=== PATIENT | male | born 2000 ===

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

== ENCOUNTER 2018-05-24 15:02 | Inpatient (IN) | payer SELFPAY ==
[2018-05-24] MEDS ORDERED: Sodium Chloride 0.9% 1,000 ML IV ONE (16:13)
--- NOTE | 2018-05-24 16:13 | C.PDOC ---
History Of Present Illness 18 year old male presents to the ED for evaluation of new onset LUQ pain associated with nausea since 3pm today. The patient notes the abdominal pain is constant and localized. Denies PSHx. Denies fever, chills, vomiting, diarrhea, bloating, and any other associated symptoms. NEW ONSET LUQ SINCE 299. CONSTANT LOCALIZED +NAUSEA. PSH NEG. NO FEVER, DIARRHEA, BLOATING EXAM MOD DIST NONTOXIC ANICTERIC ABD +LUQ TEND SOFT NO R/G REMAINDER NEG <Ciara Kate - Last Filed: 05/24/18 18:41> History Per: Patient History/Exam Limitations: no limitations Onset/Duration Of Symptoms: Hrs Current Symptoms Are (Timing): Still Present Location Of Pain/Discomfort: LLQ Associated Symptoms: Nausea. denies: Fever, Chills, Vomiting, Diarrhea Recent travel outside of the [place]: No <Ciara Kate - Last Filed: 05/24/18 18:41> <Shahid Johnson - Last Filed: 05/24/18 19:16> Time Seen by Provider: 05/24/18 15:33 Chief Complaint (Nursing): Abdominal Pain Past Medical History Reviewed: Historical Data, Nursing Documentation, Vital Signs Vital Signs: Last Vital Signs Temp 97.3 F L 05/24/18 15:08 Pulse 108 H 05/24/18 15:08 Resp 18 05/24/18 15:08 BP 112/73 05/24/18 15:08 Pulse Ox 99 05/24/18 15:08 Family History: States: Unknown Family Hx - Social History Hx Tobacco Use: No Hx Alcohol Use: No Hx Substance Use: No <Ciara Kate - Last Filed: 05/24/18 18:41> Vital Signs: Last Vital Signs Temp 97.3 F L 05/24/18 15:08 Pulse 108 H 05/24/18 15:08 Resp 18 05/24/18 15:08 BP 112/73 05/24/18 15:08 Pulse Ox 99 05/24/18 18:44 <Shahid Johnson - Last Filed: 05/24/18 19:16> Review Of Systems Except As Marked, All Systems Reviewed And Found Negative. Constitutional: Negative for: Fever, Chills Gastrointestinal: Positive for: Nausea, Abdominal Pain (LLQ). Negative for: Vomiting, Diarrhea, Other (bloating. ) <Ciara Kate Last Filed: 05/24/18 18:41> Physical Exam - Physical Exam Appears: Non-toxic, Other (moderate distress. ) Skin: Warm, Dry Head: Atraumatic, Normacephalic Eye(s): bilateral: Normal Inspection, Other (ANICTERIC.) Oral Mucosa: Moist Neck: Normal ROM Chest: Symmetrical, No Deformity Cardiovascular: Rhythm Regular, No Murmur Respiratory: Normal Breath Sounds, No Rales, No Rhonchi, No Wheezing, Other (NARD) Gastrointestinal/Abdominal: Soft, Tenderness (LUQ ), No Distention, No Guarding, No Rebound Extremity: Bilateral: Atraumatic, Normal Color And Temperature Neurological/Psych: Oriented x3, Normal Speech, Normal Cognition <Ciara Kate Filed: 05/24/18 18:41> ED Course And Treatment - Laboratory Results Result Diagrams: 05/24/18 16:46 05/24/18 16:46 O2 Sat by Pulse Oximetry: 99 (RA) Pulse Ox Interpretation: Normal - CT Scan/US CT ABD & Pelvis Other Rad Studies (CT/US): Read By Radiologist CT/US Interpretation: FINDINGS: LUNG BASES: The lung bases appear clear. No pleural effusions are seen. LIVER: There is fatty infiltration of the liver.. GALLBLADDER AND BILE DUCTS: The gallbladder appears within normal limits. No radioopaque gallstones are seen. No biliary ductal dilatation is evident. PANCREAS: Unremarkable. SPLEEN: Unremarkable. ADRENAL GLANDS: Unremarkable. KIDNEYS, URETERS, AND BLADDER: The kidneys appear within normal limits. There is no hydronephrosis or hydroureter. No urinary calculi are seen. STOMACH AND BOWEL: Unremarkable appearance of the stomach and bowel. No evidence of bowel obstruction. No evidence suggesting enteritis or colitis. APPENDIX: There is an approximate 5 mm appendicolith and distention of the appendix and thickening of the wall the appendix with mild periappendiceal fat stranding. PERITONEUM: No free fluid. No free air. LYMPH NODES: No lymphadenopathy is evident. REPRODUCTIVE: Unremarkable as visualized. VASCULATURE: No evidence of abdominal aortic aneurysm. BONES: No aggressive appearing osseous lesion. No acute osseous pathology evident. IMPRESSION: Fatty infiltration of the liver. Findings compatible with an appendicolith and appendicitis. Surgical cons ultation recommended. <Ciara Kate Filed: 05/24/18 18:41> - Laboratory Results Result Diagrams: 05/24/18 16:46 05/24/18 16:46 Lab Results: Total Bilirubin 0.6 mg/dL (0.2-1.3) 05/24/18 16:46 AST 39 U/L (17-59) 05/24/18 16:46 ALT 69 U/L (21-72) 05/24/18 16:46 Alkaline Phosphatase 86 U/L (38-126) 05/24/18 16:46 Total Protein 7.7 g/dL (6.3-8.3) 05/24/18 16:46 Albumin 4.8 g/dL (3.5-5.0) 05/24/18 16:46 Globulin 2.9 gm/dL (2.2-3.9) 05/24/18 16:46 Albumin/Globulin Ratio 1.7 (1.0-2.1) 05/24/18 16:46 Lipase 63 U/L (23-300) 05/24/18 16:46 Urine Color Yellow (YELLOW) 05/24/18 16:46 Urine Clarity Clear (Clear) 05/24/18 16:46 Urine pH 5.0 (5.0-8.0) 05/24/18 16:46 Ur Specific [place] 1.029 (1.003-1.030) 05/24/18 16:46 Urine Protein 1+ mg/dL (NEGATIVE) H 05/24/18 16:46 Urine Glucose (UA) Normal mg/dL (Normal) 05/24/18 16:46 Urine Ketones Negative mg/dL (NEGATIVE) 05/24/18 16:46 Urine Blood Negative (NEGATIVE) 05/24/18 16:46 Urine Nitrate Negative (NEGATIVE) 05/24/18 16:46 Urine Bilirubin Negative (NEGATIVE) 05/24/18 16:46 Urine Urobilinogen Normal mg/dL (0.2-1.0) 05/24/18 16:46 Ur Leukocyte Esterase Neg Nga/uL (Negative) 05/24/18 16:46 Urine WBC (Auto) 1 /hpf (0-5) 05/24/18 16:46 Urine RBC (Auto) 1 /hpf (0-3) 05/24/18 16:46 <Shahid Johnson E - Last Filed: 05/24/18 19:16> Progress - Re-Evaluation Re-evaluation Note: 05/24/18 18:43 D/W SURG RES WILL EVAL IN ER - Data Reviewed Data Reviewed: Lab, Diagnostic imaging, Old records <Ciara Kate - Last Filed: 05/24/18 18:41> - Time Time: 19:15 <Shahid Johnson - Last Filed: 05/24/18 19:16> Medical Decision Making Medical Decision Making: Initial plan: -CT ABD/Pelvis IV Con only -Morphine -Zofran -Blood sent. -Urinalysis <Ciara Kate - Last Filed: 05/24/18 18:41> Medical Decision Making: signed over @ 1900 to f/u with SUrg LLQ pain with CT + AP results reviewed pt seen and examined, + tender LLQ (not RLQ) d/w Surg Raffi ok to admit to Dr. Shayne patino for Zosyn given <Shahid Johnson - Last Filed: 05/24/18 19:16> Disposition Counseled Patient/Family Regarding: Studies Performed, Diagnosis - Disposition Disposition Time: 19:00 - POA Present On Arrival: None <Ciara Kate - Last Filed: 05/24/18 18:41> Doctor Will See Patient In The: Hospital Counseled Patient/Family Regarding: Studies Performed, Diagnosis <Shahid Johnson - Last Filed: 05/24/18 19:16> - Disposition Condition: GOOD Forms: [employer] ([place]i) - Clinical Impression Clinical Impression: Appendicitis, Abdominal pain - Scribe Statement The provider has reviewed the documentation as recorded by the Scribe (Aide Arias) Provider Attestation: All medical record entries made by the Scribe were at my direction and person ally dictated by me. I have reviewed the chart and agree that the record accurately reflects my personal performance of the history, physical exam, medical decision making, and the department course for this patient. I have also personally directed, reviewed, and agree with the discharge instructions and disposition. <Ciara Kate - Last Filed: 05/24/18 18:41> Physician Patient Turnover Patient Signed Over To: Shahid Johnson Handoff Comments: FU SURG DISPO <Ciara Kate - Last Filed: 05/24/18 18:41>
[2018-05-24] MEDS ORDERED: Morphine 4 MG/ML VIAL ONE (16:44)
[2018-05-24 16:50] LABS: BASO % 0.4 % (0.0-2.0); EOS # 0.1 K/uL (0.0-0.7); EOS % 0.6 % (0.0-4.0); HEMOGLOBIN 15.3 g/dL (12.0-18.0); LYMPH # 1.7 K/uL (1.0-4.3); LYMPH % 15.2 % (20.0-40.0); MEAN CELL VOLUME 90.3 fL (80.0-94.0); MEAN CORPUSCULAR HEMOGLOBIN 29.8 pg (27.0-31.0); MEAN PLATELET VOLUME 8.4 fL (7.2-11.7); MONO # 0.7 K/uL (0.0-0.8); NEUT # 8.6 K/uL (1.8-7.0); NEUT % 77.8 % (50.0-75.0); RBC 5.13 Mil/uL (4.40-5.90); RED CELL DISTRIBUTION WIDTH 12.5 % (11.5-14.5)
[2018-05-24 17:00] LABS: URINE BILIRUBIN NEGATIVE (NEGATIVE); URINE BLOOD NEGATIVE (NEGATIVE); URINE CLARITY Clear (Clear); URINE COLOR Yellow (YELLOW); URINE GLUCOSE (UA) NORMAL (Normal); URINE LEUKOCYTE ESTERASE NEG Leu/uL (Negative); URINE PROTEIN 1+ mg/dL (NEGATIVE); URINE UROBILINOGEN NORMAL mg/dL (0.2-1.0)
[2018-05-24 17:03] LABS: ALB/GLOB RATIO 1.7 (1.0-2.1); ALBUMIN 4.8 g/dL (3.5-5.0); ALT/SGPT 69 U/L (21-72); AST/SGOT 39 U/L (17-59); BLOOD UREA NITROGEN 12 mg/dL (9-20); CALCIUM 9.4 mg/dl (8.6-10.4); GFR NON-AFRICAN AMERICAN > 60; LIPASE 63 U/L (23-300)
[2018-05-24] MEDS ORDERED: Iodixanol 320 MG/ML 100 ML BOTTLE IV ONE (17:11)
[2018-05-24] MEDS ORDERED: Piperacillin/Tazobact 3.375 gm 100 ML IV STA (18:41)
[2018-05-24] MEDS ORDERED: Piperacillin/Tazobact 3.375 gm 100 ML IVPB ONE (19:32)
[2018-05-24] MEDS: Lactated Ringer's 1,000 ML IV SCH (21:00)
--- NOTE | 2018-05-24 21:09 | CP.PCM.HP ---
History of Present Illness - History of Present Illness History of Present Illness: Surgery: Dr. Bella Pt is a 18M with no significant PMHx who presents to with complaints of abdominal pain that started earlier today. Pt states pain woke him up from sleep at 3AM and was located on the left side of his abdomen. He tried taking some pepto bismol for the pain but states it did not help. Pt denies ever having a similar episode in the past. States pain remained on the left side and did not travel or radiate anywhere else. Admits to associated nausea but denies vomiting. Denies diarrhea/constipation. In the ER pt had a CT abdomen/pelvis which shows small appendicolith in the tip of the appendix with some edema suspicious for appendicitis. Surgery called to evaluate. Currently, pt is resting comfortably, states pain is better after morphine but left side of his abdomen is still cleaner tube. Denies fevers/chills, chest pain or SOB. PMHx: denies PSHx: denies SocialHx: denies smoking/EtOH/drugs FamHx: non-contributory NKDA Present on Admission - Present on Admission Any Indicators Present on Admission: No Review of Systems - Review of Systems All systems: reviewed and no additional remarkable complaints except (as per HPI) Past Patient History - Past Social History Smoking Status: Never Smoked - CARDIAC Hx Cardiac Disorders: Yes Other/Comment: "possible heart mumur" - PSYCHIATRIC Hx Substance Use: No - SURGICAL HISTORY Hx Surgeries: No Meds Allergies/Adverse Reactions: Allergies Allergy/AdvReac Type Severity Reaction Status Date / Time No Known Allergies Allergy Verified 05/24/18 15:07 Physical Exam - Constitutional Appears: Well, No Acute Distress - Head Exam Head Exam: ATRAUMATIC, NORMOCEPHALIC - Eye Exam Eye Exam: Normal appearance - ENT Exam ENT Exam: Mucous Membranes Moist - Respiratory Exam Respiratory Exam: NORMAL BREATHING PATTERN - Cardiovascular Exam Cardiovascular Exam: RRR - GI/Abdominal Exam GI & Abdominal Exam: Soft, Tenderness (LLQ). absent: Distended, Guarding, Rebound - Extremities Exam Extremities exam: Negative for: tenderness - Neurological Exam Neurological exam: Alert, Oriented x3 - Skin Skin Exam: Dry, Warm Results - Vital Signs Recent Vital Signs: Last Vital Signs Temp 98.6 F 05/24/18 20:06 Pulse 85 05/24/18 20:06 Resp 18 05/24/18 20:06 BP 116/70 05/24/18 20:06 Pulse Ox 100 05/24/18 20:06 - Labs Result Diagrams: 05/24/18 16:46 05/24/18 16:46 Labs: Laboratory Results - last 24 hr 05/24/18 05/24/18 05/24/18 16:46 16:46 16:46 WBC 11.0 H RBC 5.13 Hgb 15.3 Hct 46.3 MCV 90.3 MCH 29.8 MCHC 33.0 RDW 12.5 Plt Count 211 MPV 8.4 Neut % (Auto) 77.8 H Lymph % (Auto) 15.2 L [place] % (Auto) 6.0 Eos % (Auto) 0.6 Baso % (Auto) 0.4 Neut # (Auto) 8.6 H Lymph # (Auto) 1.7 [place] # (Auto) 0.7 Eos # (Auto) 0.1 Baso # (Auto) 0.0 Sodium 141 Potassium 4.0 Chloride 104 Carbon Dioxide 28 Anion Gap 13 BUN 12 Creatinine 0.9 Est GFR ( Amer) > 60 Est GFR (Non-Af Amer) > 60 Random Glucose 112 H Calcium 9.4 Total Bilirubin 0.6 AST 39 ALT 69 Alkaline Phosphatase 86 Total Protein 7.7 Albumin 4.8 Globulin 2.9 Albumin/Globulin Ratio 1.7 Lipase 63 Urine Color Yellow Urine Clarity Clear Urine pH 5.0 Ur Specific [place] 1.029 Urine Protein 1+ H Urine Glucose (UA) Normal Urine Ketones Negative Urine Blood Negative Urine Nitrate Negative Urine Bilirubin Negative Urine Urobilinogen Normal Ur Leukocyte Esterase Neg Urine WBC (Auto) 1 Urine RBC (Auto) 1 - Imaging and Cardiology CT scan - abdomen Status: Image reviewed by me, Report reviewed by me Assessment & Plan - Assessment and Plan (Free Text) Assessment: 18M with abdominal pain, r/o appendicitis Plan: - keep npo with IVF - will hold off on ABX so as not to mask appendicitis - will re-eval in AM for possible OR - d/w Dr. Shayne Polo
[2018-05-25] MEDS: Piperacill/Tazo 3.375gm in Dex 3.375 GM/50 ML BAG IVPB SCH ×3 (01:06→19:31)
[2018-05-25] MEDS: Lactated Ringer's 1,000 ML IV SCH ×3 (07:08→17:08)
--- NOTE | 2018-05-25 08:14 | CT ---
Date of service: 05/24/2018 PROCEDURE: CT Abdomen and Pelvis with contrast HISTORY: abd pain LUQ COMPARISON: None. TECHNIQUE: Contrast dose: 100 mL of Visipaque 320 intravenously. Axial and reformatted coronal and sagittal CT images of the abdomen and pelvis were obtained after IV contrast administration. Radiation dose: Total exam DLP = 993.02 mGy-cm. This CT exam was performed using one or more of the following dose reduction techniques: Automated exposure control, adjustment of the mA and/or kV according to patient size, and/or use of iterative reconstruction technique. FINDINGS: LOWER THORAX: Unremarkable. LIVER: The liver is dtzbhk-lz-grhprayyjy enlarged demonstrate moderate diffuse low attenuation suggestive of fatty liver infiltration. No evidence of mass lesion. The portal vein is patent. GALLBLADDER AND BILE DUCTS: Unremarkable. PANCREAS: Unremarkable. No gross lesion or ductal dilatation. SPLEEN: Unremarkable. ADRENALS: Unremarkable. No mass. KIDNEYS AND URETERS: Unremarkable. No hydronephrosis. No solid mass. VASCULATURE: Unremarkable. No aortic aneurysm. No aortic atherosclerotic calcification or mural plaque present. BOWEL: Unremarkable. No obstruction. No gross mural thickening. APPENDIX: There is appendicoliths seen in the proximal portion of the appendix. Mild inflammatory changes surrounding the appendix suggestive of acute appendicitis. No evidence of abscess formation. PERITONEUM: Unremarkable. No free fluid. No free air. LYMPH NODES: Unremarkable. No enlarged lymph nodes. BLADDER: Unremarkable. REPRODUCTIVE: Unremarkable. BONES: There is 1.2 centimeters sclerotic bony lesion at the left femoral neck noted may represent benign bone island. OTHER FINDINGS: None. IMPRESSION: Appendicoliths and mild inflammatory changes surrounding the appendix suggestive of appendicitis. Hepatomegaly and diffuse low-attenuation of the liver suggestive of tejc-to-wyrftobc hepatic steatosis. Preliminary report was submitted by [facility] Radiology contains concordant findings.
[2018-05-25 08:20] LABS: HEMOGLOBIN 14.7 g/dL (12.0-18.0); MEAN CELL VOLUME 90.5 fL (80.0-94.0); MEAN CORPUSCULAR HEMOGLOBIN 30.4 pg (27.0-31.0); MEAN CORPUSCULAR HGB CONC 33.6 g/dL (33.0-37.0); MEAN PLATELET VOLUME 8.4 fL (7.2-11.7); RBC 4.83 Mil/uL (4.40-5.90); RED CELL DISTRIBUTION WIDTH 12.6 % (11.5-14.5); WHITE BLOOD COUNT 8.9 K/uL (4.8-10.8)
[2018-05-25 08:53] LABS: BLOOD UREA NITROGEN 8 mg/dL (9-20); GFR NON-AFRICAN AMERICAN > 60
[2018-05-25] MEDS ORDERED: Bupivacaine-Epi 0.5%-1:200,000 PF Inj ONE (11:27)
[2018-05-25] MEDS ORDERED: Midazolam 2 MG/2 ML VIAL ONE (11:28)
[2018-05-25] MEDS ORDERED: Propofol 10 mg/ml Inj (20 ML) ONE (11:28)
[2018-05-25] MEDS ORDERED: Rocuronium 10 mg/ml (5 ml) ONE (12:07)
[2018-05-25] MEDS ORDERED: Succinylcholine Chloride 20 mg/ml Syr (5 ml) IV ONE (12:07)
[2018-05-25] MEDS ORDERED: Neostigmine 1:1000 (1 mg/ml) Inj ONE (12:27)
[2018-05-25] MEDS ORDERED: Phenylephrine 10 mg/ml Inj ONE (12:40)
[2018-05-25] MEDS ORDERED: ePHEDrine 50 mg/ml Inj ONE (12:40)
--- NOTE | 2018-05-25 12:51 | CP.PCM.DIS ---
Provider - Provider Date of Admission: 05/24/18 19:14 Attending physician: Anselmo Bella MD Time Spent in preparation of Discharge (in minutes): 40 Hospital Course - Lab Results Lab Results: Most Recent Lab Values WBC 8.9 K/uL (4.8-10.8) 05/25/18 08:05 RBC 4.83 Mil/uL (4.40-5.90) 05/25/18 08:05 Hgb 14.7 g/dL (12.0-18.0) 05/25/18 08:05 Hct 43.7 % (35.0-51.0) 05/25/18 08:05 MCV 90.5 fL (80.0-94.0) 05/25/18 08:05 MCH 30.4 pg (27.0-31.0) 05/25/18 08:05 MCHC 33.6 g/dL (33.0-37.0) 05/25/18 08:05 RDW 12.6 % (11.5-14.5) 05/25/18 08:05 Plt Count 190 K/uL (130-400) 05/25/18 08:05 MPV 8.4 fL (7.2-11.7) 05/25/18 08:05 Neut % (Auto) 77.8 % (50.0-75.0) H 05/24/18 16:46 Lymph % (Auto) 15.2 % (20.0-40.0) L 05/24/18 16:46 [place] % (Auto) 6.0 % (0.0-10.0) 05/24/18 16:46 Eos % (Auto) 0.6 % (0.0-4.0) 05/24/18 16:46 Baso % (Auto) 0.4 % (0.0-2.0) 05/24/18 16:46 Neut # (Auto) 8.6 K/uL (1.8-7.0) H 05/24/18 16:46 Lymph # (Auto) 1.7 K/uL (1.0-4.3) 05/24/18 16:46 [place] # (Auto) 0.7 K/uL (0.0-0.8) 05/24/18 16:46 Eos # (Auto) 0.1 K/uL (0.0-0.7) 05/24/18 16:46 Baso # (Auto) 0.0 K/uL (0.0-0.2) 05/24/18 16:46 Sodium 138 mmol/L (132-148) 05/25/18 08:05 Potassium 3.7 mmol/L (3.6-5.2) 05/25/18 08:05 Chloride 106 mmol/L (98-107) 05/25/18 08:05 Carbon Dioxide 27 mmol/L (22-30) 05/25/18 08:05 Anion Gap 9 (10-20) L 05/25/18 08:05 BUN 8 mg/dL (9-20) L 05/25/18 08:05 Creatinine 1.0 mg/dL (0.8-1.5) 05/25/18 08:05 Est GFR ( Amer) > 60 05/25/18 08:05 Est GFR (Non-Af Amer) > 60 05/25/18 08:05 Random Glucose 91 mg/dL (75-110) 05/25/18 08:05 Calcium 9.0 mg/dl (8.6-10.4) 05/25/18 08:05 Total Bilirubin 0.6 mg/dL (0.2-1.3) 05/24/18 16:46 AST 39 U/L (17-59) 05/24/18 16:46 ALT 69 U/L (21-72) 05/24/18 16:46 Alkaline Phosphatase 86 U/L (38-126) 05/24/18 16:46 Total Protein 7.7 g/dL (6.3-8.3) 05/24/18 16:46 Albumin 4.8 g/dL (3.5-5.0) 05/24/18 16:46 Globulin 2.9 gm/dL (2.2-3.9) 05/24/18 16:46 Albumin/Globulin Ratio 1.7 (1.0-2.1) 05/24/18 16:46 Lipase 63 U/L (23-300) 05/24/18 16:46 Urine Color Yellow (YELLOW) 05/24/18 16:46 Urine Clarity Clear (Clear) 05/24/18 16:46 Urine pH 5.0 (5.0-8.0) 05/24/18 16:46 Ur Specific [place] 1.029 (1.003-1.030) 05/24/18 16:46 Urine Protein 1+ mg/dL (NEGATIVE) H 05/24/18 16:46 Urine Glucose (UA) Normal mg/dL (Normal) 05/24/18 16:46 Urine Ketones Negative mg/dL (NEGATIVE) 05/24/18 16:46 Urine Blood Negative (NEGATIVE) 05/24/18 16:46 Urine Nitrate Negative (NEGATIVE) 05/24/18 16:46 Urine Bilirubin Negative (NEGATIVE) 05/24/18 16:46 Urine Urobilinogen Normal mg/dL (0.2-1.0) 05/24/18 16:46 Ur Leukocyte Esterase Neg Nga/uL (Negative) 05/24/18 16:46 Urine WBC (Auto) 1 /hpf (0-5) 05/24/18 16:46 Urine RBC (Auto) 1 /hpf (0-3) 05/24/18 16:46 - Hospital Course Hospital Course: 18M presented to hospital for acute appendicitis. Patient went to OR for laparoscopic appendectomy. Tolerated the procedure well. Discharge Exam - Head Exam Head Exam: ATRAUMATIC, NORMOCEPHALIC - Respiratory Exam Respiratory Exam: NORMAL BREATHING PATTERN - Cardiovascular Exam Cardiovascular Exam: REGULAR RHYTHM, +S1, +S2 - GI/Abdominal Exam GI & Abdominal Exam: Soft. absent: Distended, Firm, Guarding, Rebound, Rigid, Tenderness Additional comments: Incisions CDI - Neurological Exam Neurological exam: Alert, Oriented x3 - Skin Skin Exam: Dry, Intact, Normal Color, Warm Discharge Plan - Discharge Medications Prescriptions: oxyCODONE/Acetaminophen [Percocet 5/325 mg Tab] 1 ea PO Q6 PRN #10 tab PRN Reason: Pain, Severe (8-10) - Follow Up Plan Condition: GOOD Disposition: HOME/ ROUTINE Patient education suggested?: Yes Instructions: Appendectomy, Laparoscopic Surgery (DC) Additional Instructions: 1) Please follow up with Dr. Bella in the office in 1-2 weeks 2) May shower but do not bath 3) Glue on incisions with fall off on their own, do not peel 4) Take prescriptions as directed if needed 5) Do not drive while taking opioid medications 6) No heavy lifting for 3 weeks Referrals: Anselmo Bella MD [Staff Provider] -
--- NOTE | 2018-05-25 12:58 | PCM.SURG1 ---
Surgeon's Initial Post Op Note - Surgeon's Notes Surgeon: Shayne TENA Chief Electrician: Maggie, PGY3 Pre-Operative Diagnosis: Acute appendicitis Operative Findings: Inflammed retrocecal appendix Post-Operative Diagnosis: Acute appendicitis Operation Performed: Laparoscopic appendectomy Specimen/Specimens Removed: appendix Estimated Blood Loss: EBL {In ML}: 20 Date of Surgery/Procedure: 05/25/18 Time of Surgery/Procedure: 12:58
[2018-05-25 15:54] VITALS: BP 117/72; PULSE 107; RESP 20; TEMP 98.5; O2SAT 96
[2018-05-25] MEDS ORDERED: Influenza Vaccine 60 MCG/0.5 ML SYR (3 yr & up) IM ONE (16:15)
[2018-05-25] MEDS ORDERED: Pneumococcal 23-Valent Vaccine IM ONE (16:15)
[2018-05-25] MEDS ORDERED: Influenza Vaccine 60 mcg/0.5 mL SYR (4YR UP) IM ONE (16:30)
[2018-05-26] MEDS ORDERED: Pneumococcal 23-Valent Vaccine IM ONE (10:00)
[2018-05-27] MEDS ORDERED: Influenza Vaccine 60 mcg/0.5 mL SYR (4YR UP) IM ONE (10:00)
--- NOTE | 2018-05-29 06:47 | OP ---
PROCEDURE DATE: 05/25/2018 PREOPERATIVE DIAGNOSIS: Acute appendicitis. POSTOPERATIVE DIAGNOSIS: Incidental appendix, mild appendicitis. PROCEDURE PERFORMED: Laparoscopic appendectomy. FINDINGS: The appendix was markedly long. It is very thin, and there is only slight swelling at the tip area. The appendix was also ____ in nature. DESCRIPTION OF PROCEDURE: Under general anesthesia, the patient was prepared and draped in the usual sterile fashion. Three trocars were inserted, one in the umbilicus, one in the suprapubic area, one in the left lower quadrant. The patient was placed in a Trendelenburg position, turned over towards the left side. With the CO2 insufflated to about 15 mmHg, the appendix was also identified. The appendix was transected at the base of the Endo STACI and then the mesoappendix was transected with the help of the LigaSure. The appendix was placed in an Endo Catch and was extracted through the umbilical port. No bleeding was noted. Irrigation was done. CO2 was allowed to escape from the peritoneal cavity. The trocars were removed while we are extracting the appendix through the umbilical incision, and the wounds were then closed in a routine fashion. Estimated blood loss about 5 mL. No complications. Anselmo Bella MD
== END 2018-05-25 19:35 | disposition home or self-care (01) | DRG 343 ==
LOC: C.ER 15:02 → C.9E 19:14 → C.3T 20:01 → C.5S 21:36 → C.9E 21:49 → C.3T 22:03
PROVIDERS: ADMIT Surgery; ATTEND Surgery
PROC: 0DTJ4ZZ Resection of Appendix, Percutaneous Endoscopic Approach (ICD-10-PCS; principal; 2018-05-24)
DX: K35.80 Unspecified acute appendicitis (principal)